=== PATIENT | female | born 1975 | race Caucasian/White ===

== ENCOUNTER 2016-09-15 23:41 | Emergency (ER) | payer SELFPAY | END 2016-09-16 00:09 | disposition home or self-care (01) | LOC: NAV ERS 23:41 | DX: H66.91 Otitis media, unspecified, right ear (principal); I10 Essential (primary) hypertension; Z87.891 Personal history of nicotine dependence; Z79.899 Other long term (current) drug therapy | CPT/HCPCS: 99282 ==

== ENCOUNTER 2017-01-30 22:12 | Emergency (ER) | payer SELFPAY ==
[2017-01-30] MEDS ORDERED: Adacel (T-DAP) 0.5 ML VIAL ONE (22:31)
== END 2017-01-30 22:58 | disposition home or self-care (01) ==
LOC: NAV ERS 22:12
DX: S91.331A Puncture wound without foreign body, right foot, initial encounter (principal); F32.9 Major depressive disorder, single episode, unspecified; Z23 Encounter for immunization; Z79.899 Other long term (current) drug therapy; Z87.891 Personal history of nicotine dependence; W45.0XXA Nail entering through skin, initial encounter; Y92.009 Unspecified place in unspecified non-institutional (private) residence as the place of occurrence of the external cause
CPT/HCPCS: 90471; 90715

== ENCOUNTER 2017-04-12 15:21 | Emergency (ER) | payer OTHER, SELFPAY ==
[2017-04-12] MEDS ORDERED: Furosemide 40 MG/4 ML VIAL ONE (16:23)
[2017-04-12 16:42] LABS: #Basophils 0.1 thou/uL (0.0-0.2); #Eosinphils 0.2 thou/uL (0.0-0.7); #Lymphocytes 3.3 thou/uL (1.20-3.40); #Monocytes 0.7 thou/uL (0.11-0.59); #Neutrophils 5.2 thou/uL (1.40-6.50); %Basophils 1.6 % (0.0-1.0); %Eosinophils 1.9 % (0.0-10.0); %Lymphocytes 34.9 % (21.0-51.0); %Monocytes 7.5 % (0.0-10.0); %Neutrophils 54.2 % (42.0-75.0); Hemoglobin 13.8 g/dL (12.0-16.0); Mean Corpuscular HGB CONC 33.1 g/dL (32.0-36.0); Mean Corpuscular Volume 84.4 fl (81.0-99.0); Platelet Count 242 thou/uL (130-400); RBC Distribution Width 12.7 % (11.5-14.5); Red Blood Cell (RBC) Count 4.93 mill/uL (4.20-5.40); White Blood Cell (WBC) Count 9.6 thou/uL (4.8-10.8)
[2017-04-12 16:57] LABS: ALT (SGPT) 128 U/L (8-55); AST (SGOT) 84 U/L (5-34); Alkaline Phosphatase 132 U/L (40-150); Anion Gap 15 mmol/L (10-20); BUN (Urea Nitrogen) 7 mg/dL (7.0-18.7); Bilirubin, Total 0.5 mg/dL (0.2-1.2); Calc. Creatinine Clearance 0 mL/min (70-130); Calcium 9.2 mg/dL (7.8-10.44); Carbon Dioxide 22 mmol/L (22-29); Chloride 104 mmol/L (98-107); Estimated GFR-MDRD 84; Globulin 2.6 g/dL (2.4-3.5); Glucose 328 mg/dL (70-105); Potassium 3.5 mmol/L (3.5-5.1); Protein, Total 6.6 g/dL (6.0-8.3); Sodium 137 mmol/L (136-145)
[2017-04-12 16:58] LABS: CKMB 0.9 ng/mL (0-6.6); Troponin I Less than 0.010 ng/mL (< 0.028)
== END 2017-04-12 17:31 | disposition home or self-care (01) ==
LOC: NAV ERS 15:21
DX: R60.0 Localized edema (principal); I10 Essential (primary) hypertension; E11.9 Type 2 diabetes mellitus without complications; F32.9 Major depressive disorder, single episode, unspecified; Z87.891 Personal history of nicotine dependence; Z79.899 Other long term (current) drug therapy; Z79.01 Long term (current) use of anticoagulants
CPT/HCPCS: 80053; 82553; 83880; 84484; 85025; 93005; 96374; J1940

== ENCOUNTER 2019-01-04 09:28 | Emergency (ER) | payer SELFPAY ==
--- NOTE | 2019-01-04 09:55 | RAD ---
4 views right knee: 01/04/2019 COMPARISON: None HISTORY: Pain FINDINGS: No evidence for dislocation. There is cortical irregularity and contour irregularity involving the anterior aspect of the patella in the midportion and inferior portion suggesting an acute patellar fracture. Probable small associated knee joint effusion. IMPRESSION: Findings suspicious for a mildly displaced patellar fracture. Question point tenderness i n this region.
== END 2019-01-04 10:35 | disposition home or self-care (01) ==
LOC: NAV ERS 09:28
DX: S82.001A Unspecified fracture of right patella, initial encounter for closed fracture (principal); E11.9 Type 2 diabetes mellitus without complications; I10 Essential (primary) hypertension; F32.9 Major depressive disorder, single episode, unspecified; F17.210 Nicotine dependence, cigarettes, uncomplicated; Z79.899 Other long term (current) drug therapy; X50.1XXA Overexertion from prolonged static or awkward postures, initial encounter
CPT/HCPCS: 99283

== ENCOUNTER 2020-02-06 01:19 | Emergency (ER) | payer SELFPAY ==
[2020-02-06] MEDS ORDERED: Tetracaine HCl 0.5% Ophth Soln 2 ML Bottle ONE (01:59)
[2020-02-06] MEDS ORDERED: Neomycin/Polymyxin/HC Otic Solution 10 ML BOT ONE (02:00)
== END 2020-02-06 02:23 | disposition home or self-care (01) ==
LOC: NAV ERS 01:19
DX: H60.91 Unspecified otitis externa, right ear (principal); I10 Essential (primary) hypertension; F32.9 Major depressive disorder, single episode, unspecified; F17.210 Nicotine dependence, cigarettes, uncomplicated; Z79.899 Other long term (current) drug therapy
CPT/HCPCS: 99282

== ENCOUNTER 2023-02-09 12:27 | Emergency (ER) | payer SELFPAY ==
[2023-02-09 13:35] LABS: #Basophils 0.1 thou/uL (0.0-0.2); #Eosinphils 0.2 thou/uL (0.0-0.7); #Monocytes 0.9 thou/uL (0.11-0.59); #Neutrophils 5.7 thou/uL (1.40-6.50); %Eosinophils 1.6 % (0.0-10.0); %Lymphocytes 30.3 % (21.0-51.0); %Neutrophils 58.1 % (42.0-75.0); Hemoglobin 14.7 g/dL (12.0-16.0); Mean Corpuscular HGB CONC 33.5 g/dL (32.0-36.0); Mean Corpuscular Hemoglobin 29.6 pg (27.0-31.0); Mean Corpuscular Volume 88.5 fl (78.0-98.0); Mean Platelet Volume 7.7 fL (7.4-10.4); Platelet Count 273 10x3/uL (130-400); RBC Distribution Width 11.9 % (11.5-14.5); Red Blood Cell (RBC) Count 4.98 mill/uL (4.20-5.40); White Blood Cell (WBC) Count 9.8 10x3/uL (4.8-10.8)
[2023-02-09 14:08] LABS: ALT (SGPT) 58 U/L (8-55); AST (SGOT) 47 U/L (5-34); Albumin 4.3 g/dL (3.5-5.0); Alkaline Phosphatase 72 U/L (40-110); Anion Gap 17 mmol/L (10-20); BUN (Urea Nitrogen) 8 mg/dL (7.0-18.7); Bilirubin, Total 0.4 mg/dL (0.2-1.2); Calc. Creatinine Clearance 0 mL/min (70-130); Calcium 9.4 mg/dL (7.8-10.44); Carbon Dioxide 23 mmol/L (22-29); Chloride 100 mmol/L (98-107); Estimated GFR 97; Globulin 2.4 g/dL (2.4-3.5); Glucose 260 mg/dL (70-105); Potassium 3.1 mmol/L (3.5-5.1); Protein, Total 6.7 g/dL (6.0-8.3); Sodium 137 mmol/L (136-145)
== END 2023-02-09 14:29 | disposition home or self-care (01) ==
LOC: NAV ERS 12:27
DX: J01.90 Acute sinusitis, unspecified (principal); R06.4 Hyperventilation; E11.9 Type 2 diabetes mellitus without complications; I10 Essential (primary) hypertension; F17.210 Nicotine dependence, cigarettes, uncomplicated; Z79.899 Other long term (current) drug therapy
CPT/HCPCS: 71045; 80053; 85025; 87081; 87430

== ENCOUNTER 2023-11-02 16:43 | Emergency (ER) | payer SELFPAY ==
[2023-11-02] MEDS ORDERED: Amoxicillin/Potassium Clav 875 MG TAB ONE (18:03)
[2023-11-02] MEDS ORDERED: Ketorolac Tromethamine 60 MG/2 ML VIAL ONE (18:04)
== END 2023-11-02 18:17 | disposition home or self-care (01) ==
LOC: NAV ERS 16:43
DX: K04.7 Periapical abscess without sinus (principal); F17.210 Nicotine dependence, cigarettes, uncomplicated; E11.9 Type 2 diabetes mellitus without complications; I10 Essential (primary) hypertension; Z79.84 Long term (current) use of oral hypoglycemic drugs
CPT/HCPCS: 96372; 99282; J1885